=== PATIENT | female | born 1985 | race Caucasian/White ===

== ENCOUNTER 2016-08-06 06:30 | Inpatient (IN) | payer OTHER ==
[~2016-08-06] VITALS: Ht 157.5 cm; Wt 109.3 kg
[2016-08-06] MEDS ORDERED: TERBUTALINE 1 MG/ML VIAL SUBQ PRN (06:50)
[2016-08-06] MEDS ORDERED: PROMETHAZINE 25 MG/ML VIAL IV PRN (06:50)
[2016-08-06] MEDS ORDERED: OXYTOCIN 15 UNITS/250 ML NS 250 ML IV SCH ×2 (06:50)
[2016-08-06] MEDS ORDERED: CEFAZOLIN (LD/OB) 100 ML IV PRN (06:50)
[2016-08-06] MEDS ORDERED: MORPHINE 2 MG/ML SYR IV PRN (06:50)
[2016-08-06] MEDS ORDERED: LIDOCAINE 1% 30 ML PF INFILTRATE ONE (06:50)
[2016-08-06] MEDS ORDERED: ACETAMINOPHEN 325 MG TAB PO PRN (06:50)
[2016-08-06] MEDS ORDERED: ALU/MAG/SIM 30 ML UDC PO PRN (06:50)
[2016-08-06] MEDS ORDERED: ONDANSETRON 4 MG VIAL IV PRN (06:50)
[2016-08-06] MEDS ORDERED: METOCLOPRAMIDE 10 MG/2 ML VIAL IV PUSH PRN (06:50)
[2016-08-06] MEDS ORDERED: FAMOTIDINE 20 MG TAB PO PRN (06:50)
[2016-08-06] MEDS ORDERED: FAMOTIDINE 20 MG INJ IV PRN (06:50)
[2016-08-06] MEDS ORDERED: LIDOCAINE 1% BUFFERED 1 ML SYR INTRADERM PRN (06:50)
[2016-08-06 07:36] VITALS: Ht 157.5 cm; Wt 109.3 kg
[2016-08-06] MEDS: LACT RINGERS 1,000 ML IV SCH ×2 (08:29→14:34)
[2016-08-06] MEDS ORDERED: ROPIV/FENT 0.2%-2MCG/ML 100 ML EPIDURAL ONE (19:08)
[2016-08-06] MEDS ORDERED: FENTANYL 100 MCG/2 ML AMP ONE (19:09)
[2016-08-06] MEDS ORDERED: LACT RINGERS 500 ML IV ONE (19:20)
[2016-08-06] MEDS ORDERED: ROPIV/FENT 0.2%-2MCG/ML 100 ML EPIDURAL SCH (19:20)
[2016-08-06] MEDS ORDERED: FENTANYL 100 MCG/2 ML AMP EPIDURAL ONE (19:20)
[2016-08-06] MEDS ORDERED: SODIUM CHLORIDE 0.9% 500 ML IV PRN (19:20)
[2016-08-06] MEDS ORDERED: LACT RINGERS 500 ML IV PRN (19:20)
[2016-08-06] MEDS ORDERED: **ONLY ANESTEHSIA MAY ORDER OPIATES WHILE ON EPIDURAL XX SCH (20:00)
[2016-08-07] VITALS (12 sets, daily range): BP systolic 108–154; RESP 18–24; TEMP 97.9–98.8
[2016-08-07] MEDS ORDERED: MISOPROSTOL 100 MCG TAB ONE (02:57)
[2016-08-07] MEDS ORDERED: MEASLES,MUMPS,RUBELLA VAC SUBQ.VACC ONE (03:00)
[2016-08-07] MEDS ORDERED: CEFOXITIN 2,000 MG in SODIUM CHLORIDE 0.9% 100 ML IV ONE (03:00)
[2016-08-07] MEDS ORDERED: SODIUM CHLORIDE 0.9% FLUSH BAG 500 ML IV PRN (03:00)
[2016-08-07] MEDS ORDERED: MAG HYDROX 30 ML UDC PO PRN (03:00)
[2016-08-07] MEDS ORDERED: TDaP 0.5 ML VIAL IM.VACC ONE (03:00)
[2016-08-07] MEDS: Ibuprofen 800 MG TAB PO SCH ×3 (03:00→15:18)
[2016-08-07] MEDS ORDERED: OXYTOCIN 15 UNITS/250 ML NS 250 ML IV SCH (03:00)
[2016-08-07] MEDS ORDERED: SALINE FLUSH 10 ML FLUSH PRN (03:00)
[2016-08-07] MEDS ORDERED: ZOLPIDEM 5 MG TAB PO PRN (03:00)
[2016-08-07] MEDS ORDERED: MISOPROSTOL 200 MCG TAB RECTAL ONE (03:00)
[2016-08-07] MEDS: DERMOPLAST SPRAY TOPICAL PRN (06:36)
[2016-08-07] MEDS: ASTRINGENT MED PADS 40'S TOPICAL PRN (06:36)
[2016-08-07] MEDS: SALINE FLUSH 10 ML FLUSH SCH ×2 (07:28→20:00)
[2016-08-07] MEDS: DOCUSATE SOD 100 MG CAP PO SCH (07:42)
[2016-08-08] VITALS (7 sets, daily range): BP systolic 94–123; RESP 16–24; TEMP 97.2–98.5
[2016-08-08] MEDS: Ibuprofen 800 MG TAB PO SCH ×4 (00:07→23:34)
[2016-08-08] MEDS: SALINE FLUSH 10 ML FLUSH SCH ×2 (07:07→20:00)
[2016-08-08] MEDS: DOCUSATE SOD 100 MG CAP PO SCH (07:51)
[2016-08-08] MEDS: ASTRINGENT MED PADS 40'S TOPICAL PRN (10:39)
[2016-08-08] MEDS ORDERED: HYDROCORT TOPICAL PRN (18:10)
[2016-08-09] MEDS: SALINE FLUSH 10 ML FLUSH SCH (08:00)
[2016-08-09 08:47] VITALS: BP_SYST 120; RESP 24; TEMP 98.5
[2016-08-09 09:00] VITALS: BP_SYST 126; RESP 20; TEMP 98
[2016-08-09] MEDS: DOCUSATE SOD 100 MG CAP PO SCH (09:01)
[2016-08-09] MEDS: Ibuprofen 800 MG TAB PO SCH (09:02)
[2016-08-09] MEDS: DERMOPLAST SPRAY TOPICAL PRN (12:25)
[2016-08-09] MEDS: ASTRINGENT MED PADS 40'S TOPICAL PRN (12:25)
[2016-08-09 13:36] VITALS: BP_SYST 132; TEMP 98.4
== END 2016-08-09 13:52 | disposition home or self-care (01) | DRG 775 ==
LOC: LD 06:35 → OB 08-07 09:36
PROVIDERS: ADMIT Obstetrics & Gynecology; ATTEND Obstetrics & Gynecology
PROC: 3E033VJ Introduction of Other Hormone into Peripheral Vein, Percutaneous Approach (ICD-10-PCS; 2016-08-06)
PROC: 10907ZC Drainage of Amniotic Fluid, Therapeutic from Products of Conception, Via Natural or Artificial Opening (ICD-10-PCS; 2016-08-06)
PROC: 10E0XZZ Delivery of Products of Conception, External Approach (ICD-10-PCS; principal; 2016-08-07)
PROC: 0W8NXZZ Division of Female Perineum, External Approach (ICD-10-PCS; 2016-08-07)
PROC: 0HQ9XZZ Repair Perineum Skin, External Approach (ICD-10-PCS; 2016-08-07)
DX: O69.5XX0 Labor and delivery complicated by vascular lesion of cord, not applicable or unspecified (principal); O69.81X0 Labor and delivery complicated by cord around neck, without compression, not applicable or unspecified; Z3A.39 39 weeks gestation of pregnancy; Z37.0 Single live birth; O70.0 First degree perineal laceration during delivery
CPT/HCPCS: 82803; 85025; 86850; 86900; 86901